=== PATIENT | male | born 1955 | race Caucasian/White ===

== ENCOUNTER → 2016-09-06 | Outpatient (CLI) | payer OTHER ==
[2016-09-06 08:16] LABS: CALCULATED IONIZED CALCIUM 4.4 mg/dL (3.8-4.6); TOTAL PROTEIN 6.6 g/dL (6.4-8.5)
[2016-09-06 08:29] LABS: BASOPHILS % (AUTO) 1 % (0-2); EOSINOPHILS # (AUTO) 0.3 10^3uL; EOSINOPHILS % (AUTO) 6 % (0-4); LYMPHOCYTES # (AUTO) 1.5 X10^3; MEAN CORPUSCULAR HEMOGLOBIN 28.9 PG (26.0-34.0); MEAN CORPUSCULAR VOLUME 85 FL (80-100); MEAN PLATELET VOLUME 10.1 FL (6.0-9.5); MONOCYTES # (AUTO) 0.5 X10^3; MONOCYTES % (AUTO) 10 % (3-11); NEUTROPHILS # (AUTO) 2.3 X10^3; NEUTROPHILS % (AUTO) 50 % (51-67); PLATELET COUNT 227 10^3uL (150-450); WHITE BLOOD COUNT 4.61 10^3uL (4.0-11.0)
[2016-09-06 09:06] LABS: BILIRUBIN,URINE Negative (Negative); CLARITY,URINE Clear; COLOR,URINE Yellow; GLUCOSE, URINE (UA) Negative (Negative); LEUKOCYTE ESTERASE ,URINE Negative (Negative); UROBILINOGEN,URINE 0.2 mg/dL (0.2-1.0)
--- NOTE | 2016-09-06 16:19 | Diagnostic Imaging Report ---
INDICATION: Screening for osteoporosis. COMPARISON: None. DISCUSSION: Bone mineral density measurements of the lumbar spine and bilateral hips were performed on a [employer] DEXA scanner. Bone mineral density within the lumbar spine measures 1.128 g per centimeter squared which correlates to a T score of -0.9, normal. Bone mineral density within the left hip measures 0.998 g per centimeter squared which correlates to a T score of -0.7, normal. Bone mineral density within the right hip measures 1.028 g per centimeter squared which correlates to a T score of -0.5, normal. Exam is considered normal by [employer] guidelines. IMPRESSION: Normal bone mineral density measurements within the lumbar spine and bilateral hips. Dictated by: Dictated on workstation # [id number]
== END ==
LOC: LAB 07:31
PROVIDERS: ATTEND Family Medicine
DX: Z00.00 Encounter for general adult medical examination without abnormal findings (principal); M81.0 Age-related osteoporosis without current pathological fracture; Z12.5 Encounter for screening for malignant neoplasm of prostate; E55.9 Vitamin D deficiency, unspecified
CPT/HCPCS: 36415; 77080; 80053; 80061; 81003; 82306; 84153; 84443; 85025